=== PATIENT | male | born 1945 | race Caucasian/White ===

== ENCOUNTER 2020-04-23 06:29 | Observation (INO) ==
[2020-04-23] MEDS ORDERED: IOPAMIDOL 100 ML BOTTLE IV ONE (06:30)
--- NOTE | 2020-04-23 06:43 | Emergency Department Note ---
Neuro HPI General Chief Complaint: Stroke Symptoms Stated Complaint: stroke symptoms Time Seen by Provider: 04/23/20 06:36 Source: patient and family Mode of arrival: wheelchair Limitations: physical limitation (Unable to look left but otherwise seems largely intact.) History of Present Illness HPI Narrative: Patient describes onset at 5 PM last evening of hard to focus, blurry vision, could not read a clock. Around 1 AM he awoke his trying to figure out why his tongue was twitching. He also noticed some numbness to the right lower extremity and his right hand. He has not noticed weakness or difficulties walking. He was not specifically aware that he could not look to the left. No prior stroke, diabetes, hypertension or blood thinners. Related Data Home Medications Medication Instructions Recorded Confirmed multivitamin 1 tab PO QDAY 12/13/19 04/23/20 Allergies Allergy/AdvReac Type Severity Reaction Status Date / Time ciprofloxacin [From Cipro] Allergy Unknown Hives Verified 04/23/20 06:34 Sulfa (Sulfonamide Allergy Unknown Hives Verified 04/23/20 06:34 Antibiotics) PFS Narrative Patient History Narrative: Denies history of diabetes, anticoagulation, hypertension, myocardial infarction, CVA, TIA. Medical/Surgical/Family History All Active Problems (Updated 04/23/20 @ 07:54 by Tommy Rios MD, [facility]) TIA (transient ischemic attack) (Acute) Overweight (BMI 25.0-29.9) (Acute) Medical History (Updated 04/23/20 @ 07:54 by Tommy Rios MD, [facility]) Arthritis (Chronic) HTN (hypertension) (Chronic) Hyperlipidemia (Chronic) Insomnia (Chronic) Kidney stones (Chronic) Overweight (BMI 25.0-29.9) (Acute) BMI 28 on 04/23/2020 Prostate cancer (Chronic) TIA (transient ischemic attack) (Acute) Surgical History History of colonoscopy (Chronic ~09/20/16) History of prostate surgery (Chronic) Hx of appendectomy (Chronic) S/P rotator cuff repair (Chronic) Family History Prostate cancer Father Brother Arthritis Mother Myocardial infarction Mother Sister CVA (cerebral vascular accident) Mother Social History Smoking Status: Former smoker Alcohol Intake Frequency: 0-2 drinks per day (Usually a couple of glasses of wine per day.) Substance Use: does not use Exam General Limitations: physical limitation (Unable to look left but otherwise seems largely intact.) General appearance: alert, in no apparent distress and nontoxic Head Head: atraumatic and normocephalic Eye Eye: Present normal appearance and PERRL; Absent EOMI (Unable to look to the midline or left of the midline, bilateral. Seems to be conjugate on brief initial exam.) ENT ENT: Present normal oropharynx and mucous membranes moist Neck Neck: Present trachea midline; Absent lymphadenopathy and thyromegaly Chest Chest: Present symmetric chest wall rise Respiratory Respiratory: Present normal lung sounds bilaterally; Absent respiratory distress, rales/crackles, wheezes, stridor, accessory muscle use and prolonged expiratory phase Cardiovascular Cardiovascular: Present regular rate and normal rhythm; Absent systolic murmur and diastolic murmur Adbominal Abdominal: Present soft; Absent distention, tenderness, guarding, rebound, rigidity, organomegaly and mass Extremities Extremities: Present normal capillary refill; Absent pedal edema, pretibial edema, calf tenderness and cyanosis Back Back: Absent CVA tenderness (R), CVA tenderness (L) and spinous process tende rness Neurological Neurological: Present alert and oriented X3 Expanded Neurological Patient oriented to: Present person, place and time Speech: Present fluid speech CRANIAL NERVES: EOM function (II, III, IV, ): Abnormal Left and Abnormal Right (Unable to look at midline or left of midline in his gaze.), facial sensation (V): Normal, facial palsy (VII): Normal and tongue deviation (XII): Normal CEREBELLAR FUNCTION: finger to nose: Normal and heel to borges: Normal CEREBELLAR FUNCTION: ataxic gait (Abnormal movements of right lower extremity elevated ambulate.) Motor strength - LUE: 5/5 Motor strength - RUE: 5/5 Motor strength - LLE: 5/5 (For hip flexion) Motor strength - RLE: 3/5 (For hip flexion) SENSORY EXAM UPPER EXTREMITY: Normal: light touch and pin prick SENSORY EXAM LOWER EXTREMITY: Normal: light touch Coma Scale Eye Opening: Spontaneous Coma Scale Motor Response: Obeys Commands Coma Scale Verbal Response: Oriented Coma Scale Total: 15 Psychiatric Psychiatric: Present normal affect, polite and pleasant; Absent depressed, agitated, anxious and poor eye contact Skin Skin: Present warm and dry; Absent cyanosis and pallor Course Vital Signs Vital signs: Vital Signs Temperature 98.0 F 04/23/20 06:30 Pulse Rate 79 04/23/20 06:30 Respiratory Rate 20 04/23/20 06:30 Blood Pressure 170/79 04/23/20 06:30 Pulse Oximetry (%) 97 04/23/20 06:30 Temperature 98.0 F 04/23/20 06:30 Pulse Rate 66 04/23/20 09:51 Respiratory Rate 12 04/23/20 09:51 Blood Pressure 156/98 04/23/20 07:11 Pulse Oximetry (%) 99 04/23/20 09:51 MDM MDM Narrative Medical decision making narrative: 6:26 AM - interviewed and examined. Obvious gaze abnormality, look to the left past midline, with some paresthesias right lower extremity. Code stroke protocol for CT and labs. 6:40 AM - call back from the tele-neurologist specialist, Dr. Hall, recognizes that patient is outside TPA window but could have intervention up to 24 hours so he does recommend going ahead with the CT Angio of the head neck. [phone] is his number to communicate if there are abnormalities found. Assuming no large vessel occlusion due to clot, his intermediate management would include aspirin 325 or 81, a statin, stroke rule out with observation, echo and MRI in the future. 6:55 PM - further neuro exam reveals sensation to light touch and to pinching seems to be intact on the face, upper extremities, lower extremities. Rather neuro exam is unremarkable except for as previous in his eyes and that there is some vertical nystagmus (rapid phase from inferior to superior) bilaterally. Gaze does seem to be conjugate. 7:05 AM - CT result reveals no acute intracranial hemorrhage. Blood sugar was 132. INR 0.9. 8:01 AM - patient complains of the last hour having an increase in his tongue twitching. I noticed a twitch on the left side of his cheek jaw area that spasmed with a jerk once or twice but none others. His tongue is midline and does not seem to be quivering, tremor or other. 9:00 AM - I reviewed his CT angiogram of the head neck with Dr. Marroquin. He has atherosclerotic disease without clinically major stenoses. Care transferred to Dr. Marroquin Due to change in shift. Lab Data Result diagrams: 04/23/20 06:43 04/23/20 06:43 Labs: Lab Results 04/23/20 04/23/20 04/23/20 Range/Units 06:43 06:43 06:43 WBC 5.5 (4.50-11.00) K/mcL RBC 4.44 L (4.63-6.08) M/mcL Hgb 14.6 (13.7-17.5) g/dL Hct 42.6 (40.1-51.0) % POC Hct 44.0 (41.0-55.0) % MCV 95.9 (80.0-100.0) fL MCH 32.9 (26.0-34.0) pg MCHC 34.3 (31.0-36.0) g/dL RDW 12.1 (11.5-14.5) % Plt Count 177 (140-440) K/mcL MPV 11.1 H (7.4-10.4) fL Gran % 71.6 (38.0-78.0) % Lymph % (Auto) 18.1 (15.5-49.0) % [place] % (Auto) 8.5 (1.0-12.0) % Eos % (Auto) 1.3 (0.0-7.0) % Baso % (Auto) 0.5 (0.0-2.0) % Gran # 3.95 (1.80-8.00) K/mcL Lymph # (Auto) 1.00 L (1.50-4.80) K/mcL [place] # (Auto) 0.47 (0.10-0.90) K/mcL Eos # (Auto) 0.07 (0.00-0.70) K/mcL Baso # (Auto) 0.03 (0.00-0.30) K/mcL POC PT 11.2 L (11.9-14.5) sec POC INR 0.9 (0.9-1.2) APTT 26 (20-37) sec POC Sodium 140 (133-145) mmol/L Sodium 140 (133-145) mmol/L POC Potassium 3.8 (3.3-5.1) mmol/L Potassium 3.9 (3.3-5.1) mmol/L POC Chloride 105 (96-108) mmol/L Chloride 103 (96-108) mmol/L Carbon Dioxide 22 (22-30) mmol/L POC Total CO2 22 (22-30) mmol/L Anion Gap 15.0 (8-16) POC BUN 19 (8-23) mg/dl BUN 19 (8-23) mg/dl Creatinine 1.0 (0.7-1.2) mg/dl POC Creatinine 0.8 (0.7-1.2) mg/dl GFR Calculation 73 Glucose 147 H (70-105) mg/dL POC Glucose 144 H (70-105) mg/dL Calcium 9.2 (8.6-10.4) mg/dl POC WB Ioniz Calcium 1.02 L (1.16-1.32) mmol/L Total Bilirubin 0.6 (0.0-1.0) mg/dL AST 27 (0-37) U/l ALT 25 (0-40) U/l Alkaline Phosphatase 64 (39-117) U/L Troponin T (0-0.03) ng/ml Total Protein 6.5 (5.9-8.4) gm/dL Albumin 4.2 (3.2-5.2) gm/dL Globulin 2.3 (2.2-3.7) gm/dL Albumin/Globulin Ratio 1.8 (1.0-2.3) 04/23/20 Range/Units 06:43 WBC (4.50-11.00) K/mcL RBC (4.63-6.08) M/mcL Hgb (13.7-17.5) g/dL Hct (40.1-51.0) % POC Hct (41.0-55.0) % MCV (80.0-100.0) fL MCH (26.0-34.0) pg MCHC (31.0-36.0) g/dL RDW (11.5-14.5) % Plt Count (140-440) K/mcL MPV (7.4-10.4) fL Gran % (38.0-78.0) % Lymph % (Auto) (15.5-49.0) % [place] % (Auto) (1.0-12.0) % Eos % (Auto) (0.0-7.0) % Baso % (Auto) (0.0-2.0) % Gran # (1.80-8.00) K/mcL Lymph # (Auto) (1.50-4.80) K/mcL [place] # (Auto) (0.10-0.90) K/mcL Eos # (Auto) (0.00-0.70) K/mcL Baso # (Auto) (0.00-0.30) K/mcL POC PT (11.9-14.5) sec POC INR (0.9-1.2) APTT (20-37) sec POC Sodium (133-145) mmol/L Sodium (133-145) mmol/L POC Potassium (3.3-5.1) mmol/L Potassium (3.3-5.1) mmol/L POC Chloride (96-108) mmol/L Chloride (96-108) mmol/L Carbon Dioxide (22-30) mmol/L POC Total CO2 (22-30) mmol/L Anion Gap (8-16) POC BUN (8-23) mg/dl BUN (8-23) mg/dl Creatinine (0.7-1.2) mg/dl POC Creatinine (0.7-1.2) mg/dl GFR Calculation Glucose (70-105) mg/dL POC Glucose (70-105) mg/dL Calcium (8.6-10.4) mg/dl POC WB Ioniz Calcium (1.16-1.32) mmol/L Total Bilirubin (0.0-1.0) mg/dL AST (0-37) U/l ALT (0-40) U/l Alkaline Phosphatase (39-117) U/L Troponin T < 0.01 (0-0.03) ng/ml Total Protein (5.9-8.4) gm/dL Albumin (3.2-5.2) gm/dL Globulin (2.2-3.7) gm/dL Albumin/Globulin Ratio (1.0-2.3) Discharge Plan Patient/Caregiver Discharge Instructions Pt seen by WOOD FINISHER APPRENTICE/PA only: No Patient Disposition: Still a Patient Follow up with: Tommy Rios MD, [facility]FP [Primary Care Provider] - Prescriptions: No Action multivitamin Tablet 1 tab PO QDAY RF: 0
--- NOTE | 2020-04-23 06:49 | Cat Scan Report ---
INDICATION: Neuro Deficit/acute stroke COMPARISON: None. TECHNIQUE: Axial noncontrast-enhanced images through the brain. Sagittally and coronally reformatted images. FINDINGS: Cerebral hemispheres:Negative. No intra-axial abnormality. No intra-axial hematoma. No localized mass effect. Brain volume is within normal limits. No hydrocephalus Brainstem and cerebellum:No intra-axial abnormality Extra-axial:No acute hemorrhage. No subdural or epidural hematoma. No subarachnoid hemorrhage. Basilar cisterns are normal There is calcification of the mid to distal basilar artery. There appears to be luminal narrowing and significant stenosis or occlusion are possible. CTA recommended. Calvarial:No calvarial fracture. No lytic lesion Temporal bones are negative. No destructive lesions Soft tissue, orbits, sinuses:Orbits and visualized facial soft tissues and paranasal sinuses are negative IMPRESSION: 1. No acute intra-axial abnormality. No intracranial hemorrhage 2. Atherosclerotic calcification of the mid to distal basilar artery. Stenosis or occlusion are possible. CTA recommended The exam was performed using radiation dose optimization techniques including, but not limited to, automated exposure control, adjustment of the mA and/or kV according to patient size and use of iterative reconstruction technique. Interpreted and Authenticated by: Lb Bryan 04/23/20
[2020-04-23 06:55] LABS: POC Blood Urea Nitrogen 19 mg/dl (8-23); POC CO2 22 mmol/L (22-30); POC Calcium, Ionized 1.02 mmol/L (1.16-1.32); POC Chloride 105 mmol/L (96-108); POC Creatinine 0.8 mg/dl (0.7-1.2); POC Glucose, Random 144 mg/dL (70-105); POC INR 0.9 (0.9-1.2); POC Potassium 3.8 mmol/L (3.3-5.1); POC Pro Time 11.2 sec (11.9-14.5); POC Sodium 140 mmol/L (133-145)
[2020-04-23 07:27] LABS: Basophils # (Auto) 0.03 K/mcL (0.00-0.30); Basophils % (Auto) 0.5 % (0.0-2.0); Eosinophils # (Auto) 0.07 K/mcL (0.00-0.70); Eosinophils % (Auto) 1.3 % (0.0-7.0); Granulocytes % (Auto) 71.6 % (38.0-78.0); Hematocrit 42.6 % (40.1-51.0); Hemoglobin 14.6 g/dL (13.7-17.5); Lymphocytes % (Auto) 18.1 % (15.5-49.0); Mean Cell Volume 95.9 fL (80.0-100.0); Mean Corpuscular HGB Conc 34.3 g/dL (31.0-36.0); Mean Platelet Volume 11.1 fL (7.4-10.4); Monocytes # (Auto) 0.47 K/mcL (0.10-0.90); Monocytes % (Auto) 8.5 % (1.0-12.0); Platelet Count 177 K/mcL (140-440); RBC 4.44 M/mcL (4.63-6.08); Red Cell Distribution Width 12.1 % (11.5-14.5); WBC 5.5 K/mcL (4.50-11.00)
[2020-04-23 07:46] LABS: ALT/SGPT 25 U/l (0-40); AST/SGOT 27 U/l (0-37); Albumin 4.2 gm/dL (3.2-5.2); Albumin/Globulin Ratio 1.8 (1.0-2.3); Alkaline Phosphatase 64 U/L (39-117); Bilirubin,Total 0.6 mg/dL (0.0-1.0); Blood Urea Nitrogen 19 mg/dl (8-23); Calcium 9.2 mg/dl (8.6-10.4); Carbon Dioxide 22 mmol/L (22-30); Chloride 103 mmol/L (96-108); Globulin 2.3 gm/dL (2.2-3.7); Glomerular Filtration Rate 73; Glucose 147 mg/dL (70-105)
--- NOTE | 2020-04-23 08:07 | Cat Scan Report ---
INDICATION: code stroke COMPARISON: Noncontrast enhanced brain CT scan dated 04/23/2020 TECHNIQUE: Axial images were obtained through the upper chest, neck, and head during arterial phase. MIP and CPR reformatted images. 90ml Isovue 370 injected intravenously. FINDINGS: AORTIC ARCH: Mild calcified atherosclerotic plaque. Origins of the left subclavian artery, left vertebral artery, left common carotid artery, innominate artery, right common carotid artery, right subclavian artery, right vertebral artery are negative. No origin stenosis. CAROTID ARTERIES:Right: Right common carotid artery is negative. No stenosis or occlusion. No calcified or noncalcified plaque at the origin of the right internal carotid artery. No significant stenosis or evidence for ulceration. Right internal carotid artery is otherwise negative. No stenosis or occlusion. No fibromuscular dysplasia or dissection. Left: Left common carotid artery is negative. No stenosis or occlusion Calcified plaque at the origin of left internal carotid artery. No significant stenosis. No significant noncalcified plaque or ulceration. Left internal carotid artery is otherwise negative. There is no stenosis or occlusion. No dissection or evidence for fibromuscular dysplasia VERTEBRAL ARTERIES:Vertebral arteries are patent without stenosis or occlusion [place]:[Cavernous and supraclinoid internal carotid arteries are negative. No significant stenosis or occlusion. M1 segments of the middle cerebral arteries and A1 segments of the anterior cerebral arteries are negative. Intracranial vertebral arteries are negative. There is plaque in the basilar artery. Basilar artery is tortuous. There is luminal irregularity in the mid basilar artery. No stenosis or occlusion. Posterior cerebral arteries and superior cerebellar arteries are negative] INTRACRANIAL CIRCULATION:No intracranial branch occlusion. No arteriovenous malformation or aneurysm No dural sinus occlusion UPPER CHEST:No pulmonary parenchymal mass or focal infiltrate. Superior mediastinum is negative NECK:No solid or cystic soft tissue mass. No pathologic lymphadenopathy. BRAIN:No acute intracranial hemorrhage. No focal attenuation abnormalities or pathologic contrast enhancement. IMPRESSION: 1. Densely calcified plaque in the proximal left internal carotid artery. No hemodynamically significant stenosis. 2. 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 No significant stenosis. No occlusion. The exam was performed using radiation dose optimization techniques including, but not limited to, automated exposure control, adjustment of the mA and/or kV according to patient size and use of iterative reconstruction technique. Interpreted and Authenticated by: Lb Bryan 04/23/20
--- NOTE | 2020-04-23 09:16 | Emergency Department Note ---
Neuro HPI General Chief Complaint: Stroke Symptoms Stated Complaint: stroke symptoms Time Seen by Provider: 04/23/20 06:36 Source: patient and family Mode of arrival: wheelchair Limitations: physical limitation (Unable to look left but otherwise seems largely intact.) History of Present Illness HPI Narrative: Narrative: I took over the care of this patient from Dr. Fox at 9 AM. This patient has had a stroke clinically. His NIH score was only 1 but he is having a lot of difficulty with the vision and ataxia. He was out of the window for TPA. CT scan of the head was unremarkable. CTA of head and neck shows a lot of atherosclerotic change but no stenoses. At this time we will go ahead and do the stroke MRI. Related Data Home Medications Medication Instructions Recorded Confirmed multivitamin 1 tab PO QDAY 12/13/19 04/23/20 Allergies Allergy/AdvReac Type Severity Reaction Status Date / Time ciprofloxacin [From Cipro] Allergy Unknown Hives Verified 04/23/20 06:34 Sulfa (Sulfonamide Allergy Unknown Hives Verified 04/23/20 06:34 Antibiotics) Review of Systems ROS ROS Narrative: Narrative: PFSH Narrative Patient History Narrative: Narrative: Medical/Surgical/Family History All Active Problems (Updated 04/23/20 @ 13:21 by Eder Marroquin MD) Acute CVA (cerebrovascular accident) (Acute) TIA (transient ischemic attack) (Acute) Overweight (BMI 25.0-29.9) (Acute) Medical History (Updated 04/23/20 @ 13:21 by Eder Marroquin MD) Arthritis (Chronic) HTN (hypertension) (Chronic) Hyperlipidemia (Chronic) Insomnia (Chronic) Kidney stones (Chronic) Overweight (BMI 25.0-29.9) (Acute) BMI 28 on 04/23/2020 Prostate cancer (Chronic) TIA (transient ischemic attack) (Acute) Surgical History History of colonoscopy (Chronic ~09/20/16) History of prostate surgery (Chronic) Hx of appendectomy (Chronic) S/P rotator cuff repair (Chronic) Family History Mother Arthritis Myocardial infarction CVA (cerebral vascular accident) Father Prostate cancer Brother Prostate cancer Sister Myocardial infarction Social History Smoking Status: Former smoker Alcohol Intake Frequency: 0-2 drinks per day (Usually a couple of glasses of w ine per day.) Substance Use: does not use Exam Narrative Narrative: Narrative: General Limitations: physical limitation (Unable to look left but otherwise seems largely intact.) General appearance: alert, in no apparent distress and nontoxic Course Vital Signs Vital signs: Vital Signs Temperature 98.0 F 04/23/20 06:30 Pulse Rate 79 04/23/20 06:30 Respiratory Rate 20 04/23/20 06:30 Blood Pressure 170/79 04/23/20 06:30 Pulse Oximetry (%) 97 04/23/20 06:30 Temperature 98.0 F 04/23/20 06:30 Pulse Rate 69 04/23/20 13:13 Respiratory Rate 12 04/23/20 09:51 Blood Pressure 159/91 04/23/20 13:13 Pulse Oximetry (%) 99 04/23/20 13:13 MDM MDM Narrative Medical decision making narrative: Narrative: CT of head was negative CTA of head and neck showed no stenosis but did show atherosclerosis and IV quick brain MRI was negative for stroke. I discussed this case with the stroke neurologist several times and we will go admit the patient to the hospitalist here. Lab Data Lab results reviewed: Yes I reviewed the patient's lab results. Result diagrams: 04/23/20 06:43 04/23/20 06:43 Labs: Lab Results 04/23/20 04/23/20 04/23/20 Range/Units 06:43 06:43 06:43 WBC 5.5 (4.50-11.00) K/mcL RBC 4.44 L (4.63-6.08) M/mcL Hgb 14.6 (13.7-17.5) g/dL Hct 42.6 (40.1-51.0) % POC Hct 44.0 (41.0-55.0) % MCV 95.9 (80.0-100.0) fL MCH 32.9 (26.0-34.0) pg MCHC 34.3 (31.0-36.0) g/dL RDW 12.1 (11.5-14.5) % Plt Count 177 (140-440) K/mcL MPV 11.1 H (7.4-10.4) fL Gran % 71.6 (38.0-78.0) % Lymph % (Auto) 18.1 (15.5-49.0) % [place] % (Auto) 8.5 (1.0-12.0) % Eos % (Auto) 1.3 (0.0-7.0) % Baso % (Auto) 0.5 (0.0-2.0) % Gran # 3.95 (1.80-8.00) K/mcL Lymph # (Auto) 1.00 L (1.50-4.80) K/mcL [place] # (Auto) 0.47 (0.10-0.90) K/mcL Eos # (Auto) 0.07 (0.00-0.70) K/mcL Baso # (Auto) 0.03 (0.00-0.30) K/mcL POC PT 11.2 L (11.9-14.5) sec POC INR 0.9 (0.9-1.2) APTT 26 (20-37) sec POC Sodium 140 (133-145) mmol/L Sodium 140 (133-145) mmol/L POC Potassium 3.8 (3.3-5.1) mmol/L Potassium 3.9 (3.3-5.1) mmol/L POC Chloride 105 (96-108) mmol/L Chloride 103 (96-108) mmol/L Carbon Dioxide 22 (22-30) mmol/L POC Total CO2 22 (22-30) mmol/L Anion Gap 15.0 (8-16) POC BUN 19 (8-23) mg/dl BUN 19 (8-23) mg/dl Creatinine 1.0 (0.7-1.2) mg/dl POC Creatinine 0.8 (0.7-1.2) mg/dl GFR Calculation 73 Glucose 147 H (70-105) mg/dL POC Glucose 144 H (70-105) mg/dL Calcium 9.2 (8.6-10.4) mg/dl POC WB Ioniz Calcium 1.02 L (1.16-1.32) mmol/L Total Bilirubin 0.6 (0.0-1.0) mg/dL AST 27 (0-37) U/l ALT 25 (0-40) U/l Alkaline Phosphatase 64 (39-117) U/L Troponin T (0-0.03) ng/ml Total Protein 6.5 (5.9-8.4) gm/dL Albumin 4.2 (3.2-5.2) gm/dL Globulin 2.3 (2.2-3.7) gm/dL Albumin/Globulin Ratio 1.8 (1.0-2.3) Urine Color Urine Appearance Urine pH (5.0-9.0) Ur Specific [place] (1.000-1.035) Urine Protein (NEG) mg/dL Urine Glucose (UA) (NEG) mg/dL Urine Ketones (NEG) mg/dL Urine Occult Blood (<0.03) mg/dL Urine Nitrate (NEG) Urine Bilirubin (NEG) mg/dL Urine Urobilinogen (NEG) mg/dL Ur Leukocyte Esterase (NEG) /uL Urine RBC (0-1) /hpf Urine WBC (0-4) /hpf Ur Squamous Epith Cells (0-4) /hpf Urine Bacteria (0) /hpf Ur Culture Indicated? 04/23/20 04/23/20 Range/Units 06:43 10:00 WBC (4.50-11.00) K/mcL RBC (4.63-6.08) M/mcL Hgb (13.7-17.5) g/dL Hct (40.1-51.0) % POC Hct (41.0-55.0) % MCV (80.0-100.0) fL MCH (26.0-34.0) pg MCHC (31.0-36.0) g/dL RDW (11.5-14.5) % Plt Count (140-440) K/mcL MPV (7.4-10.4) fL Gran % (38.0-78.0) % Lymph % (Auto) (15.5-49.0) % [place] % (Auto) (1.0-12.0) % Eos % (Auto) (0.0-7.0) % Baso % (Auto) (0.0-2.0) % Gran # (1.80-8.00) K/mcL Lymph # (Auto) (1.50-4.80) K/mcL [place] # (Auto) (0.10-0.90) K/mcL Eos # (Auto) (0.00-0.70) K/mcL Baso # (Auto) (0.00-0.30) K/mcL POC PT (11.9-14.5) sec POC INR (0.9-1.2) APTT (20-37) sec POC Sodium (133-145) mmol/L Sodium (133-145) mmol/L POC Potassium (3.3-5.1) mmol/L Potassium (3.3-5.1) mmol/L POC Chloride (96-108) mmol/L Chloride (96-108) mmol/L Carbon Dioxide (22-30) mmol/L POC Total CO2 (22-30) mmol/L Anion Gap (8-16) POC BUN (8-23) mg/dl BUN (8-23) mg/dl Creatinine (0.7-1.2) mg/dl POC Creatinine (0.7-1.2) mg/dl GFR Calculation Glucose (70-105) mg/dL POC Glucose (70-105) mg/dL Calcium (8.6-10.4) mg/dl POC WB Ioniz Calcium (1.16-1.32) mmol/L Total Bilirubin (0.0-1.0) mg/dL AST (0-37) U/l ALT (0-40) U/l Alkaline Phosphatase (39-117) U/L Troponin T < 0.01 (0-0.03) ng/ml Total Protein (5.9-8.4) gm/dL Albumin (3.2-5.2) gm/dL Globulin (2.2-3.7) gm/dL Albumin/Globulin Ratio (1.0-2.3) Urine Color Yellow Urine Appearance Hazy Urine pH 8.0 (5.0-9.0) Ur Specific [place] 1.053 H (1.000-1.035) Urine Protein 30 A (NEG) mg/dL Urine Glucose (UA) Negative (NEG) mg/dL Urine Ketones Neg (NEG) mg/dL Urine Occult Blood Neg (<0.03) mg/dL Urine Nitrate Neg (NEG) Urine Bilirubin Neg (NEG) mg/dL Urine Urobilinogen Neg (NEG) mg/dL Ur Leukocyte Esterase Neg (NEG) /uL Urine RBC 0 (0-1) /hpf Urine WBC 0 (0-4) /hpf Ur Squamous Epith Cells 0 (0-4) /hpf Urine Bacteria 0 (0) /hpf Ur Culture Indicated? No Radiology Data Radiology results reviewed: Yes I reviewed the patient's radiology results. Discharge Plan Patient/Caregiver Discharge Instructions Pt seen by AREA INTELLIGENCE TECHNICIAN/PA only: No Clinical Impression: Acute CVA (cerebrovascular accident) Patient Disposition: Xfer As Inpt ([facility]) Follow up with: Tommy Rios MD, FAAFP [Primary Care Provider] - Prescriptions: No Action multivitamin Tablet 1 tab PO QDAY RF: 0
--- NOTE | 2020-04-23 10:30 | Magnetic Resonance Report ---
INDICATION: [place] Symptoms TECHNIQUE: Limited MRI scan of the brain. COMPARISON: Previous brain CT scan and CTA dated 04/23/2020 FINDINGS: No restricted diffusion. No acute infarction. There is intracerebral white matter abnormality in a predominantly periventricular distribution. This is consistent with small vessel ischemic change. No focal intra-axial signal abnormality or localized mass effect. Brain volume is low. No extra-axial, intracranial abnormality. Intracranial left vertebral artery is prominent and tortuous and there is mild effacement of the left side of the medulla. No associated signal abnormality IMPRESSION: 1. No restricted diffusion. No acute infarction 2. White matter abnormality consistent with small vessel ischemic change Interpreted and Authenticated by: Lb Bryan 04/23/20
[2020-04-23 11:10] LABS: Appearance,Urine HAZY; Bacteria,Urine 0 /hpf (0); Bilirubin,Urine NEG (NEG); Color,Urine YELLOW; Culture Indicated,Urine NO; Glucose,Urine (UA) NEGATIVE (NEG); Ketones,Urine NEG (NEG); Leukocyte Esterase,Urine NEG /uL (NEG); Nitrate,Urine NEG (NEG); Protein,Urine 30 mg/dL (NEG); Specific Gravity,Urine 1.053 (1.000-1.035); Urine Blood NEG mg/dL (<0.03); Urine RBC 0 /hpf (0-1); Urine Squamous Epithelial Cell 0 /hpf (0-4); Urine WBC 0 /hpf (0-4); Urobilinogen,Urine NEG (NEG)
[2020-04-23] MEDS ORDERED: 0.9 % SODIUM CHLORIDE 500 ML IV ONE ×2 (13:22→15:12)
[2020-04-23] MEDS ORDERED: ASPIRIN 81 MG TAB.CHEW CHEWED ONE ×2 (13:22→15:12)
--- NOTE | 2020-04-23 14:01 | Internal Med History&Physical ---
HPI History of Present Illness Patient information: Note initiated : 04/23/20 at 1:56 pm Service Date, if different from initiated Date: [] Patient: Imani Vegas 74 y/o M admitted on for Stroke Symptoms. Chief Complaint: [] History of present illness: Mr. Vegas is a 74 year old M Who states about 5 PM last night he had a time focusing mainly on his right eye. And woke up in the middle night about 1 AM with his tongue twitching. Then he noticed some weakness in his right extremities and had some difficulty walking. Stroke neurologist was contacted. Patient did undergo CTA head neck which is unremarkable for significant stenosis. Brain MRI showed no obvious infarct. 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 Low brain volume. ABCD score 6. Patient denies headache. Review of Systems: Pertinent positive as above. Denies headache/fever/chills/nausea/vomiting/chest or abdominal pain/cough/dyspnea/diarrhea. Remaining 10 point review of system reviewed negative PFSH PFSH All Active Problems (Updated 04/23/20 @ 13:21 by Eder Marroquin MD) Acute CVA (cerebrovascular accident) (Acute) TIA (transient ischemic attack) (Acute) Overweight (BMI 25.0-29.9) (Acute) Medical History (Updated 04/23/20 @ 13:21 by Eder Marroquin MD) Arthritis (Chronic) HTN (hypertension) (Chronic) Hyperlipidemia (Chronic) Insomnia (Chronic) Kidney stones (Chronic) Overweight (BMI 25.0-29.9) (Acute) BMI 28 on 04/23/2020 Prostate cancer (Chronic) TIA (transient ischemic attack) (Acute) Surgical History History of colonoscopy (Chronic ~09/20/16) History of prostate surgery (Chronic) Hx of appendectomy (Chronic) S/P rotator cuff repair (Chronic) Family History Mother Arthritis Myocardial infarction CVA (cerebral vascular accident) Father Prostate cancer Brother Prostate cancer Sister Myocardial infarction Social History (Updated 01/29/20 @ 10:52 by Tommy Rios MD, [facility]) marital status: smoking status: Former smoker quit date: 08/29/89 alcohol intake frequency: 0-2 drinks per day (Usually a couple of glasses of wine per day.) substance use type: does not use MEDS/ALLERGIES Home Medications and Allergies Home Medications Medication Instructions Recorded Confirmed Type multivitamin 1 tab PO QDAY 12/13/19 04/23/20 History Allergies Allergy/AdvReac Type Severity Reaction Status Date / Time ciprofloxacin [From Cipro] Allergy Unknown Hives Verified 04/23/20 06:34 Sulfa (Sulfonamide Allergy Unknown Hives Verified 04/23/20 06:34 Antibiotics) EXAM Constitutional Vitals: Temp Pulse Resp BP Pulse Ox 98.0 F 69 12 161/96 100 04/23/20 06:30 04/23/20 13:30 04/23/20 09:51 04/23/20 13:30 04/23/20 13:30 Exam: General: Alert, Awake, No acute Distress Eyes/N/T: Unable to gaze left past midline (horizontal total conjugate gaze palsy), PERRL Head/Neck: neck supple, normocephalic atraumatic CV: RRR, No murmurs, normal s1/s2 Pulm: Clear b/l, no wheezing/rhonchi/rales Abd: soft, nontender, +BS x4 Ext: no clubbing/cyanosis/edema Neuro: Alert, no focal deficits, moves all extremities, CN 2-12 grossly intact, symmetrical strength b/l upper/lower, sensations intact b/l upper/lower Skin: warm/dry DATA Data Completed and Pending Labs: Labs from last 24 hours 04/23/20 04/23/20 04/23/20 10:00 06:43 06:43 WBC RBC Hgb Hct POC Hct 44.0 MCV MCH MCHC RDW Plt Count MPV Gran % Lymph % (Auto) [place] % (Auto) Eos % (Auto) Baso % (Auto) Gran # Lymph # (Auto) [place] # (Auto) Eos # (Auto) Baso # (Auto) POC PT POC INR APTT POC Sodium 140 Sodium 140 POC Potassium 3.8 Potassium 3.9 POC Chloride 105 Chloride 103 Carbon Dioxide 22 POC Total CO2 22 Anion Gap 15.0 POC BUN 19 BUN 19 Creatinine 1.0 POC Creatinine 0.8 GFR Calculation 73 Glucose 147 H POC Glucose 144 H Calcium 9.2 POC WB Ioniz Calcium 1.02 L Total Bilirubin 0.6 AST 27 ALT 25 Alkaline Phosphatase 64 Troponin T < 0.01 Total Protein 6.5 Albumin 4.2 Globulin 2.3 Albumin/Globulin Ratio 1.8 Urine Color Yellow Urine Appearance Hazy Urine pH 8.0 Ur Specific [place] 1.053 H Urine Protein 30 A Urine Glucose (UA) Negative Urine Ketones Neg Urine Occult Blood Neg Urine Nitrate Neg Urine Bilirubin Neg Urine Urobilinogen Neg Ur Leukocyte Esterase Neg Urine RBC 0 Urine WBC 0 Ur Squamous Epith Cells 0 Urine Bacteria 0 Ur Culture Indicated? No 04/23/20 04/23/20 06:43 06:43 WBC 5.5 RBC 4.44 L Hgb 14.6 Hct 42.6 POC Hct MCV 95.9 MCH 32.9 MCHC 34.3 RDW 12.1 Plt Count 177 MPV 11.1 H Gran % 71.6 Lymph % (Auto) 18.1 [place] % (Auto) 8.5 Eos % (Auto) 1.3 Baso % (Auto) 0.5 Gran # 3.95 Lymph # (Auto) 1.00 L [place] # (Auto) 0.47 Eos # (Auto) 0.07 Baso # (Auto) 0.03 POC PT 11.2 L POC INR 0.9 APTT 26 POC Sodium Sodium POC Potassium Potassium POC Chloride Chloride Carbon Dioxide POC Total CO2 Anion Gap POC BUN BUN Creatinine POC Creatinine GFR Calculation Glucose POC Glucose Calcium POC WB Ioniz Calcium Total Bilirubin AST ALT Alkaline Phosphatase Troponin T Total Protein Albumin Globulin Albumin/Globulin Ratio Urine Color Urine Appearance Urine pH Ur Specific [place] Urine Protein Urine Glucose (UA) Urine Ketones Urine Occult Blood Urine Nitrate Urine Bilirubin Urine Urobilinogen Ur Leukocyte Esterase Urine RBC Urine WBC Ur Squamous Epith Cells Urine Bacteria Ur Culture Indicated? A/P Narrative A/P Narrative: A: *CVA w/left horizontal conjugate gaze palsy, mild right-sided weakness: -EKG nsr -MRI no obvious pathology but may not manifest for several days on imaging -ABCD=6 *HTN: *HTD: * P: -ASA/Statin started -permissive HTN 24-48hrs -echo pending - -pt/ot/ST -ppx: lovenox DNR Time Spent With Patient Time: Total time spent is greater than 50% in coordination of care (as document ed) at patient's floor/unit and/or counseling patient: QUALITY Stroke Onset of Symptoms Date: 04/22/20 Onset of Symptoms Time: 17:00 Symptom Onset Unknown: No
[2020-04-23] MEDS ORDERED: ACETAMINOPHEN 325 MG TABLET PO PRN (15:12)
[2020-04-23] MEDS ORDERED: 0.9 % SODIUM CHLORIDE 500 ML IV SCH (15:12)
[2020-04-23] MEDS ORDERED: SENNOSIDES 1 TABLET PO PRN (15:12)
[2020-04-23] MEDS ORDERED: ONDANSETRON 4 MG/2 ML VIAL IV PRN (15:12)
[2020-04-23] MEDS: 0.9 % SODIUM CHLORIDE 10 ML SYRINGE IV SCH ×2 (15:40→20:49)
[2020-04-23] MEDS: IPRATROPIUM/ALBUTEROL 3 ML AMPUL.NEB NEB SCH ×3 (16:07→22:33)
[2020-04-23] MEDS ORDERED: IPRATROPIUM/ALBUTEROL 3 ML AMPUL.NEB NEB ONE (16:08)
--- NOTE | 2020-04-23 20:23 | Discharge Summary ---
Discharge Provider Provider Patient information: Note initiated : 04/23/20 at 8:20 pm Service Date, if different from initiated Date: [] Patient: Imani Vegas 74 y/o M admitted on 04/23/20 for Stroke Symptoms. Chief Complaint: [] Date of admission: 04/23/20 14:40 Discharge date: 04/24/20 Primary care physician: Tommy Rios M.D., F.A.A.F.P. Consults: 04/23/20 Consult to Physician [CONS] Stat Comment: Consulting Provider: Prince Wells Reason For Exam: Physician to Consult Discharge Meds Discharge Medications Home Medications multivitamin 1 tab PO QDAY 12/13/19 [History Confirmed 04/23/20 Last Taken Un known] aspirin 81 mg PO DAILY #30 tab 04/23/20 [Rx Last Taken Unknown] clopidogrel 75 mg PO DAILY #20 tab 04/23/20 [Rx Last Taken Unknown] amlodipine [Norvasc] 2.5 mg PO QDAY #30 tab 04/24/20 [Rx Last Taken Unknown] atorvastatin [Lipitor] 40 mg PO QDAY #30 tab 04/24/20 [Rx Last Taken Unknown] COURSE Hospital Course Hospital course: History of present illness: Mr. Vegas is a 74 year old M Who states about 5 PM last night he had a time focusing mainly on his right eye. And woke up in the middle night about 1 AM with his tongue twitching. Then he noticed some weakness in his right extremities and had some difficulty walking. Stroke neurologist was contacted. Patient did undergo CTA head neck which is unremarkable for significant stenosis. Brain MRI showed no obvious infarct. 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 Low brain volume. ABCD score 6. Patient denies headache. 04/24 Patient stable no new change. Assessment: *CVA w/left horizontal conjugate gaze palsy, mild right-sided weakness: *HTN: *HLD: Discharge diagnosis: Stroke hypertension hyperlipidemia Time Spent with Patient Time attestation: Total time spent providing and/or coordinating discharge servi augustina: Time spent: Greater than 30 minutes EXAM Constitutional Vitals: Temp Pulse Resp BP Pulse Ox 98.8 F 69 15 154/93 97 04/23/20 15:32 04/23/20 19:08 04/23/20 19:08 04/23/20 18:01 04/23/20 18:01 Discharge Data Data Completed and Pending Labs on day of discharge: Labs from last 24 hours 04/23/20 04/23/20 04/23/20 10:00 06:43 06:43 WBC RBC Hgb Hct POC Hct 44.0 MCV MCH MCHC RDW Plt Count MPV Gran % Lymph % (Auto) [place] % (Auto) Eos % (Auto) Baso % (Auto) Gran # Lymph # (Auto) [place] # (Auto) Eos # (Auto) Baso # (Auto) POC PT POC INR APTT POC Sodium 140 Sodium 140 POC Potassium 3.8 Potassium 3.9 POC Chloride 105 Chloride 103 Carbon Dioxide 22 POC Total CO2 22 Anion Gap 15.0 POC BUN 19 BUN 19 Creatinine 1.0 POC Creatinine 0.8 GFR Calculation 73 Glucose 147 H POC Glucose 144 H Calcium 9.2 POC WB Ioniz Calcium 1.02 L Total Bilirubin 0.6 AST 27 ALT 25 Alkaline Phosphatase 64 Troponin T < 0.01 Total Protein 6.5 Albumin 4.2 Globulin 2.3 Albumin/Globulin Ratio 1.8 Urine Color Yellow Urine Appearance Hazy Urine pH 8.0 Ur Specific [place] 1.053 H Urine Protein 30 A Urine Glucose (UA) Negative Urine Ketones Neg Urine Occult Blood Neg Urine Nitrate Neg Urine Bilirubin Neg Urine Urobilinogen Neg Ur Leukocyte Esterase Neg Urine RBC 0 Urine WBC 0 Ur Squamous Epith Cells 0 Urine Bacteria 0 Ur Culture Indicated? No 04/23/20 04/23/20 06:43 06:43 WBC 5.5 RBC 4.44 L Hgb 14.6 Hct 42.6 POC Hct MCV 95.9 MCH 32.9 MCHC 34.3 RDW 12.1 Plt Count 177 MPV 11.1 H Gran % 71.6 Lymph % (Auto) 18.1 [place] % (Auto) 8.5 Eos % (Auto) 1.3 Baso % (Auto) 0.5 Gran # 3.95 Lymph # (Auto) 1.00 L [place] # (Auto) 0.47 Eos # (Auto) 0.07 Baso # (Auto) 0.03 POC PT 11.2 L POC INR 0.9 APTT 26 POC Sodium Sodium POC Potassium Potassium POC Chloride Chloride Carbon Dioxide POC Total CO2 Anion Gap POC BUN BUN Creatinine POC Creatinine GFR Calculation Glucose POC Glucose Calcium POC WB Ioniz Calcium Total Bilirubin AST ALT Alkaline Phosphatase Troponin T Total Protein Albumin Globulin Albumin/Globulin Ratio Urine Color Urine Appearance Urine pH Ur Specific [place] Urine Protein Urine Glucose (UA) Urine Ketones Urine Occult Blood Urine Nitrate Urine Bilirubin Urine Urobilinogen Ur Leukocyte Esterase Urine RBC Urine WBC Ur Squamous Epith Cells Urine Bacteria Ur Culture Indicated? Discharge Plan Patient/Caregiver Discharge Instructions Activity: increase activity as tolerated Diet: Cardiac Prescriptions: New clopidogrel 75 mg Tablet 75 mg PO DAILY Qty: 20 RF: 0 aspirin 81 mg Tablet,Chewable 81 mg PO DAILY Qty: 30 RF: 0 amlodipine [Norvasc] 2.5 mg tablet 2.5 mg PO QDAY Qty: 30 RF: 0 atorvastatin [Lipitor] 40 mg tablet 40 mg PO QDAY Qty: 30 RF: 0 Continued multivitamin Tablet 1 tab PO QDAY RF: 0 Follow Up Plan Follow up with: Tommy Rios MD, FAAFP [Primary Care Provider] - Patient Disposition: Home, Self-Care Prognosis: Fair Rehab Potential: Fair Overall status at discharge: patient is not back to baseline Discharge Orders: Discharge Order (Routine); Ordered 04/24/20 Ordered By: Prince Wells [facility] VTE Deep Vein Thrombosis/Pulmonary Embolism Present on Admission: No
[2020-04-23] MEDS: ATORVASTATIN 40 MG TABLET PO SCH ×2 (20:49→20:55)
[2020-04-23] MEDS: FAMOTIDINE 20 MG TABLET PO SCH (20:49)
[2020-04-24] MEDS: IPRATROPIUM/ALBUTEROL 3 ML AMPUL.NEB NEB SCH ×2 (04:13→06:40)
[2020-04-24] MEDS: 0.9 % SODIUM CHLORIDE 10 ML SYRINGE IV SCH ×3 (06:24→20:44)
--- NOTE | 2020-04-24 09:06 | Internal Med Progress Note ---
SUBJECTIVE Subjective Patient information: Note initiated : 04/24/20 at 9:03 am Service Date, if different from initiated Date: [] Patient: Imani Vegas 74 y/o M admitted on 04/23/20 for Stroke Symptoms. Chief Complaint: [] Interval history: Mr. Vegas is a 74 year old M Who states about 5 PM last night he had a time focusing mainly on his right eye. And woke up in the middle night about 1 AM with his tongue twitching. Then he noticed some weakness in his right extremities and had some difficulty walking. Stroke neurologist was contacted. Patient did undergo CTA head neck which is unremarkable for significant stenosis. Brain MRI showed no obvious infarct. 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 Low brain volume. ABCD score 6. Patient denies headache. 04/24 Patient slept okay no new complaints. States his vision on the right is maybe a little better. Has some weakness on the right side made a little better. Review of Systems: denies headache/fever/chills/nausea/vomiting/chest or abdominal pain/c ough/dyspnea/diarrhea. Otherwise see above. Constitutional Vitals: Vital Signs Temp Pulse Resp BP Pulse Ox 98.2 F 65 12 139/89 95 04/24/20 08:01 04/24/20 06:02 04/24/20 08:01 04/24/20 08:01 04/24/20 08:01 Period Temp Pulse Resp BP Sys/Pool Pulse Ox Last 24 Hr 98.0 F-99.2 F 58-80 10-19 136-166/71-101 92-100 Intake and Output 04/23/20 04/24/20 04/24/20 21:59 05:59 13:59 Intake Total 860 Output Total 1050 525 Balance -1050 335 Weight 84.141 kg Intake & Output: Intake & Output 04/23/20 04/24/20 04/24/20 21:59 05:59 13:59 Intake Total 860 Output Total 1050 525 Balance -1050 335 Weight 84.141 kg Intake: IV 500 Sodium Chloride 0.9% 500 ml @ 500 100 mls/hr IV .Q5H [facility] Rx#: [id number] Oral 360 Output: Void Amount 1050 525 Other: Urine Appearance Clear Clear Urine Color Bright Yellow Dark Yellow Urine Odor Normal Strong Stool Size Small Stool Color Brown # Voids 1 # Bowel Movements 1 Exam: General: Alert, Awake, No acute Distress Eyes/N/T: Unable to gaze left past midline (horizontal total conjugate gaze palsy), PERRL Head/Neck: neck supple, normocephalic atraumatic CV: RRR, No murmurs, normal s1/s2 Pulm: Clear b/l, no wheezing/rhonchi/rales Abd: soft, nontender, +BS x4 Ext: no clubbing/cyanosis/edema Neuro: Alert,moves all extremities, sensations intact b/l upper/lower, right leg weakness improved Skin: warm/dry OBJ DATA Labs CBC & Chem 7: 04/23/20 06:43 04/23/20 06:43 Labs: Abnormal Lab Results 04/23/20 04/23/20 04/23/20 10:00 06:43 06:43 RBC MPV Lymph # (Auto) POC PT 11.2 L Glucose 147 H POC Glucose 144 H POC WB Ioniz Calcium 1.02 L Ur Specific [place] 1.053 H Urine Protein 30 A 04/23/20 06:43 RBC 4.44 L MPV 11.1 H Lymph # (Auto) 1.00 L POC PT Glucose POC Glucose POC WB Ioniz Calcium Ur Specific [place] Urine Protein Meds: Medications Acetaminophen (Tylenol) 650 mg PO Q6HP PRN; Protocol PRN Reason: Per Pain Protocol/Fever > 101 Aspirin (Aspirin) 81 mg PO DAILY [facility] Atorvastatin Calcium (Lipitor) 80 mg PO HS [facility] Last Admin: 04/23/20 20:55 Dose: 80 mg Documented by: Clopidogrel Bisulfate (Plavix) 75 mg PO DAILY [facility] Enoxaparin Sodium (Lovenox) 40 mg SQ DAILY [facility] Famotidine (Pepcid) 20 mg PO BID [facility] Last Admin: 04/23/20 20:49 Dose: 20 mg Documented by: Ondansetron HCl (Zofran) 4 mg IV Q4HP PRN; Protocol PRN Reason: Nausea And Vomiting Senna (Senokot) 2 tab PO HSP PRN PRN Reason: Constipation Sodium Chloride (Saline Flush) 10 ml IV Q8 [facility] Last Admin: 04/24/20 06:24 Dose: 10 ml Documented by: A/P Narrative A/P Narrative: A: *CVA w/left horizontal conjugate gaze palsy, mild right-sided weakness: -EKG nsr -MRI no obvious pathology but may not manifest for several days on imaging, especially if brainstem *HTN: *HTD: * P: -ASA/Statin started -permissive HTN 24-48hrs, then low-dose norvasc -echo pending - -pt/ot -ppx: lovenox DNR Time Spent With Patient Time: Total time spent is greater than 50% in coordination of care (as documented) at patient's floor/unit and/or counseling patient: QUALITY Stroke Onset of Symptoms Date: 04/22/20 Onset of Symptoms Time: 17:00 Symptom Onset Unknown: No VTE Deep Vein Thrombosis/Pulmonary Embolism Present on Admission: No
[2020-04-24] MEDS: CLOPIDOGREL 75 MG TABLET PO SCH (09:16)
[2020-04-24] MEDS: FAMOTIDINE 20 MG TABLET PO SCH ×2 (09:16→20:43)
[2020-04-24] MEDS: ASPIRIN 81 MG TAB.CHEW PO SCH (09:17)
[2020-04-24] MEDS: ENOXAPARIN 40 MG/0.4 ML SYRINGE SQ SCH (09:17)
[2020-04-24] MEDS: ATORVASTATIN 40 MG TABLET PO SCH (20:44)
[2020-04-25] MEDS: 0.9 % SODIUM CHLORIDE 10 ML SYRINGE IV SCH (05:50)
--- NOTE | 2020-04-25 07:28 | Internal Med Progress Note ---
SUBJECTIVE Subjective Patient information: Note initiated : 04/25/20 at 7:25 am Service Date, if different from initiated Date: [] Patient: Imani Vegas 74 y/o M admitted on 04/23/20 for Stroke Symptoms. Chief Complaint: [] Interval history: Mr. Vegas is a 74 year old M Who states about 5 PM last night he had a time focusing mainly on his right eye. And woke up in the middle night about 1 AM with his tongue twitching. Then he noticed some weakness in his right extremities and had some difficulty walking. Stroke neurologist was contacted. Patient did undergo CTA head neck which is unremarkable for significant stenosis. Brain MRI showed no obvious infarct. 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 Low brain volume. ABCD score 6. Patient denies headache. 04/24 Patient slept okay no new complaints. States his vision on the right is maybe a little better. Has some weakness on the right side made a little better. awaiting placement to rehab. 04/25 Review of Systems: denies headache/fever/chills/nausea/vomiting/chest or abdominal pain/cough/dyspnea/diarrhea. Otherwise see above. Constitutional Vitals: Vital Signs Temp Pulse Resp BP Pulse Ox 98.7 F 57 L 10 L 141/88 94 04/25/20 00:01 04/24/20 16:01 04/25/20 04:35 04/25/20 04:31 04/25/20 02:00 Period Temp Pulse Resp BP Sys/Pool Pulse Ox Last 24 Hr 97.8 F-99.1 F 57-60 10-24 139-169/86-106 94-98 Intake and Output 04/24/20 04/25/20 04/25/20 21:59 05:59 13:59 Intake Total 720 200 Output Total 400 300 450 Balance 320 -100 -450 Weight 90.492 kg Intake & Output: Intake & Output 04/24/20 04/25/20 04/25/20 21:59 05:59 13:59 Intake Total 720 200 Output Total 400 300 450 Balance 320 -100 -450 Weight 90.492 kg Intake: Oral 720 200 Output: Void Amount 400 300 450 Other: Meal Dinner Percent of Meal Consumed 100% Feeding Ability Independent Urine Appearance Clear Clear Urine Color Pale Bright Yellow Stool Size Large Stool Color Yellow Stool Consistency Liquid Watery # Voids 1 # Bowel Movements 1 Exam: General: Alert, Awake, No acute Distress Eyes/N/T: Unable to gaze left past midline (horizontal total conjugate gaze palsy), PERRL Head/Neck: neck supple, normocephalic atraumatic CV: RRR, No murmurs, normal s1/s2 Pulm: Clear b/l, no wheezing/rhonchi/rales Abd: soft, nontender, +BS x4 Ext: no clubbing/cyanosis/edema Neuro: Alert,moves all extremities, sensations intact b/l upper/lower, right leg weakness improved Skin: warm/dry OBJ DATA Labs CBC & Chem 7: 04/23/20 06:43 04/23/20 06:43 Labs: Abnormal Lab Results 04/23/20 04/23/20 04/23/20 10:00 06:43 06:43 RBC MPV Lymph # (Auto) POC PT 11.2 L Glucose 147 H POC Glucose 144 H POC WB Ioniz Calcium 1.02 L Ur Specific [place] 1.053 H Urine Protein 30 A 04/23/20 06:43 RBC 4.44 L MPV 11.1 H Lymph # (Auto) 1.00 L POC PT Glucose POC Glucose POC WB Ioniz Calcium Ur Specific [place] Urine Protein Meds: Medications Acetaminophen (Tylenol) 650 mg PO Q6HP PRN; Protocol PRN Reason: Per Pain Protocol/Fever > 101 Aspirin (Aspirin) 81 mg PO DAILY [facility] Last Admin: 04/24/20 09:17 Dose: 81 mg Documented by: Atorvastatin Calcium (Lipitor) 80 mg PO HS [facility] Last Admin: 04/24/20 20:44 Dose: 80 mg Documented by: Clopidogrel Bisulfate (Plavix) 75 mg PO DAILY [facility] Last Admin: 04/24/20 09:16 Dose: 75 mg Documented by: Enoxaparin Sodium (Lovenox) 40 mg SQ DAILY [facility] Last Admin: 04/24/20 09:17 Dose: 40 mg Documented by: Famotidine (Pepcid) 20 mg PO BID [facility] Last Admin: 04/24/20 20:43 Dose: 20 mg Documented by: Ondansetron HCl (Zofran) 4 mg IV Q4HP PRN; Protocol PRN Reason: Nausea And Vomiting Senna (Senokot) 2 tab PO HSP PRN PRN Reason: Constipation Sodium Chloride (Saline Flush) 10 ml IV Q8 [facility] Last Admin: 04/25/20 05:50 Dose: 10 ml Documented by: A/P Narrative A/P Narrative: A: *CVA w/left horizontal conjugate gaze palsy, mild right-sided weakness: -EKG nsr -MRI no obvious pathology but may not manifest for several days on imaging, especially if brainstem -echo no thrombus/PFO *HTN: *HLD: * P: -DAPT for 21 days then ASA ongoing, Statin started -permissive HTN 24-48hrs, then low-dose norvasc -start low-dose norvasc upon d/c -pt/ot -ppx: lovenox DNR Time Spent With Patient Time: Total time spent is greater than 50% in coordination of care (as documented) at patient's floor/unit and/or counseling patient: QUALITY Stroke Onset of Symptoms Date: 04/22/20 Onset of Symptoms Time: 17:00 Symptom Onset Unknown: No VTE Deep Vein Thrombosis/Pulmonary Embolism Present on Admission: No
[2020-04-25] MEDS: ASPIRIN 81 MG TAB.CHEW PO SCH (08:07)
[2020-04-25] MEDS: FAMOTIDINE 20 MG TABLET PO SCH (08:07)
[2020-04-25] MEDS: CLOPIDOGREL 75 MG TABLET PO SCH (08:07)
[2020-04-25] MEDS: ENOXAPARIN 40 MG/0.4 ML SYRINGE SQ SCH (08:07)
[2020-04-25] MEDS ORDERED: amLODIPine 5 MG TABLET PO SCH (09:00)
== END 2020-04-25 10:00 ==
LOC: ICU 06:29 → ED 06:29 → ICU 14:40
PROVIDERS: ADMIT Internal Medicine; ATTEND Internal Medicine